=== PATIENT | female | born 1995 | race African-American/Black ===

== ENCOUNTER 2016-03-27 00:10 | Emergency (ER) | payer BC ==
[~2016-03-27] VITALS: Ht 154.9 cm; Wt 112.3 kg
[2016-03-27 00:16] VITALS: TEMP 37.3; Ht 154.9 cm; Wt 112.3 kg
[2016-03-27] MEDS ORDERED: ALUMINUM/MAGNESIUM SUSP 30 ML UDC PO STA (00:29)
[2016-03-27] MEDS ORDERED: LIDOCAINE HCL 2% VISC SOLN 20 ML UDC PO STA (00:29)
[2016-03-27] MEDS ORDERED: ONDANSETRON 4MG OD TAB PO ONE (00:30)
[2016-03-27] MEDS ORDERED: HYDR25CA PO (01:33)
[2016-03-27] MEDS ORDERED: FLUO40CA8 PO (01:33)
[2016-03-27] MEDS ORDERED: ONDANSETRON HOME PACK 4MG OD TAB PO ONE (02:00)
[2016-03-27 02:09] VITALS: BP 130/78; PULSE 78; O2SAT 98
--- NOTE | 2016-03-27 04:14 | EMERGENCY ROOM VISIT NOTE ---
History First contact with patient: 00:19 Chief Complaint: GI ASSESSMENT Stated Complaint: NAUSEA,STOMACH CRAMPS,SHIVERS,AFTER EAT RARE BEEF Nursing Triage Summary: pt states she ate a rare burger then about 12 hrs ago developed nausea, abd cramping, shivering ad shaking History of Present Illness The patient is a 20 year old female who presents to the Emergency Room with complaints of nausea and upset stomach after eating a rare hamburger today at [facility]. Patient states the past several hours her stomach is felt nauseous and upset. Patient denies chest pain, dyspnea, fever, chills, vomiting , diarrhea, back pain, urinary symptoms. She is able to tolerate by mouth fluids but has a decreased appetite. No one else is sick. Review of Systems See HPI for pertinent positives & negatives. A total of 10 systems reviewed and were otherwise negative. Past Medical/Surgical History Migraines, depression Social History Smoking Status: Never Smoker Smokeless Tobacco Use: No Drug Use: none Marital Status: single Occupation Status: [employer] student Current/Historical Medications Scheduled Fluoxetine (Prozac), 40 MG PO DAILY Scheduled PRN Hydroxyzine Pamoate (Vistaril), 25 MG PO BID PRN for Anxiety Allergies Coded Allergies: No Known Allergies (Unverified , 03/27/16) Physical Exam Vital Signs Date Time Temp Pulse Resp B/P Pulse Ox O2 Delivery O2 Flow Rate FiO2 03/27/16 02:09 78 16 130/78 98 03/27/16 00:16 37.3 114 18 141/83 96 Room Air Pain Rating (0-10): 0 Physical Exam VITALS: Vitals are noted on the nurse's note and reviewed by myself. Vital signs stable. GENERAL: Pleasant female, in no acute distress, nondiaphoretic, well-developed well-nourished. SKIN: The skin was without rashes, erythema, edema, or bruising. There is no tenting of the skin. Capillary reflex less than 2 seconds. HEAD: Normocephalic atraumatic. EARS: External auditory canals clear, tympanic membranes pearly mercedes without erythema or effusion bilaterally. EYES: Pupils equal round and reactive to light and accommodation. Conjunctivae without injection, sclerae without icterus. Extraocular movements intact. NOSE: Patent, turbinates without inflammation or discharge. MOUTH: Mucous membranes moist. Pharynx without erythema or exudate. Uvula midline. Airway patent. Tongue does not deviate. NECK: Supple without nuchal rigidity. No lymphadenopathy. No thyromegaly. Cervical spine is nontender. No JVD. HEART: Regular rate and rhythm without murmurs gallops or rubs. LUNGS: Clear to auscultation bilaterally without wheezes, rales or rhonchi. No dullness to percussion. No retractions or accessory muscle use. ABDOMEN: Positive bowel sounds x 4. Normal tympanic percussion. Soft, nontender, without masses or organomegaly. Blanc sign negative. No guarding or rebound tenderness. MUSCULOSKELETAL: No muscle atrophy, erythema, or edema noted. NEURO: Patient was alert and oriented to person place and time. Normal sensation to light and sharp touch. No focal neurological deficits. Medical Decision & Procedures Medications Administered Medications (Trade) Dose Ordered Sig/Doug Route Start Time Stop Time Status Last Admin Dose Admin Lidocaine HCl (Viscous Lidocaine 2% Soln) 10 ml NOW STAT PO 03/27/16 00:29 03/27/16 00:30 DC 03/27/16 00:37 10 ML Al Hydroxide/Mg Hydroxide (Maalox Susp) 30 ml NOW STAT PO 03/27/16 00:29 03/27/16 00:30 DC 03/27/16 00:37 30 ML Ondansetron HCl (Zofran Odt) 4 mg ONE ONCE PO 03/27/16 00:30 03/27/16 00:31 DC 03/27/16 00:37 4 MG ED Course Prior records/ancillary studies reviewed. Triage Nursing notes reviewed. Additional history obtained from the friend The patient's history was concerning for nausea after eating raw hamburger Differential diagnosis: Etiologies such as gastroenteritis, food borne illness, infections, appendicitis , diverticulitis, inflammatory bowel disease, obstruction, GI bleed, biliary pathology, as well as others were entertained. Physical examination findings: As above. Abdominal examination revealed no tenderness. Vital signs reviewed and revealed stable. ER treatment provided: GI cocktail, Zofran On reassessment the patient felt better. Patient was tolerating p.o. intake. Diagnostics interpretation by me: Deferred This appears to be consistent with nausea most likely from raw hamburger. Patient did not have acute abdomen on exam. She is a type by mouth fluids and crackers and ambulated without difficulties. She felt much better to be medicated as above. She was advised to rest, stay well-hydrated and avoid raw meats in the future. She is advised to return to the immediate for abdominal pain, fevers, vomiting, worsening signs or symptoms or as needed. By the evaluation outlined above emergent etiologies such as appendicitis, diverticulitis, obstruction, cardiac sources, mesenteric ischemia, aortic pathology, inflammatory bowel disease, renal colic, PUD, biliary pathology, UTI , as well as others were deemed relatively unlikely. The pt informed about the findings as listed above. All questions were answered and pleased with the treatment. Return instructions were outlined and the patient was discharged in stable condition. Outpatient prescription management: zofran Referral: The patient was referred to their primary care physician for follow-up in 2 to 3 days for a recheck of the current condition. Medical Decision As above Impression Primary Impression: Nausea Departure Information Dispostion Home / Self-Care Condition GOOD Forms HOME CARE DOCUMENTATION FORM, IMPORTANT VISIT INFORMATION Patient Instructions My Desktime Additional Instructions You may also use Tums and/or Zantac for upset stomach and acid reflux. This is [id number]. Zofran(odansetron) tablets 4mg: Take one and allow it to dissolve in your mouth every four to six hours as needed for nausea or vomiting. Rest and drink plenty of fluids as tolerated. Slow sips of water or sports drinks are recommended instead of large amounts all at once. Continue current medications. Once your stomach is settled start with a clear liquid diet (jello, soup broth, etc.) and then advance as tolerated. You should avoid full, heavy meals for about 24 hrs from the time your symptoms resolved. Return to the ER for persistent vomiting, fevers, abdominal pain, chest pains, difficulty breathing, black or bloody stools, worsening of your condition, or as needed. Follow up with your primary physician in 2-3 days for a recheck of your current condition.
== END 2016-03-27 02:21 | disposition home or self-care (01) ==
LOC: C.EDB 00:11
DX: R11.0 Nausea (principal); F32.9 Major depressive disorder, single episode, unspecified; Z79.899 Other long term (current) drug therapy